=== PATIENT | male | born 1965 | race Hispanic/Latino ===

== ENCOUNTER → 2020-02-28 | Day surgery (SDC) | payer BC ==
[2020-02-27 14:53] VITALS: BMI 30.8
[~2020-02-28] MED LIST: Bupivacaine PF 0.75% SDV 10 ML ONE; CEFAZOLIN 1 GM VIAL ONE; Cyclopentolate 1% Opth Drop 2 ML BOT ONE; Fentanyl 100 MCG/2 ML VIAL ONE; Fluorouracil 100 MG, Enoxaparin Sodium 25 MG, EPINEPHrine 0.3 MG in Ophthalmic Irrigati... IRR SCH; Lidocaine 1% PF 5 ML VIAL ONE; Lidocaine 4% PF 5 ML AMP ONE; Maxitrol 0.1% Opth Oint 3.5 GM TUBE ONE; Midazolam HCl 2 mg/2 ml Vial ONE; PROPOFOL 20 ML ONE; Phenylephrine 2.5% Ophth Soln 5 ML BOT ONE; Triamcinolone 40 MG/ML VIAL ONE
--- NOTE | 2020-02-29 15:11 | OP ---
DATE OF PROCEDURE: 02/28/2020 PREOPERATIVE DIAGNOSIS: Rhegmatogenous retinal detachment, left eye. POSTOPERATIVE DIAGNOSIS: Rhegmatogenous retinal detachment, left eye. PROCEDURES PERFORMED: Pars plana vitrectomy and retinal detachment repair, left eye. ANESTHESIA: Local with monitored anesthesia care. DESCRIPTION OF PROCEDURE: The patient was identified in the preoperative holding area. Appropriate informed consent for the planned surgical procedure on the left eye had been obtained. The patient was transported to the operative suite, where appropriate cardiopulmonary monitoring was established. Local anesthesia was obtained using retrobulbar modified Van Lint lid block using 50:50 mixture of 4% lidocaine and 0.75% bupivacaine. The patient was prepped and draped in usual sterile manner for ophthalmic surgery on the left eye. Lid speculum was placed in the left eye. A 25-gauge trocar was placed through the conjunctiva and sclera superotemporally, inferotemporally, and supranasally. Inferotemporally, a long trocar was required to penetrate through the pars plana. Infusion line was verified and turned on. Light pipe and vitreous cutter were inserted into the eye. Core vitrectomy was performed. Vitreous base was trimmed back 360 degrees carefully with wide field cutting system. 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 Break was noted superotemporally of the total retinal detachment. Posterior drained retinotomy was created inferior to the nerve and a complete air-fluid exchange was performed flattening the retina. No folds or elevations. A 360 laser was placed using Endolaser delivery device. A 28% sulfur hexafluoride gas was infused into the eye. Trocars were removed and all three sclerotomy suture closed. Retrobulbar Kenalog sequential Ancef was placed. Antibiotic ointment was placed. Eye was patched and shielded. The patient was taken to the postoperative recovery unit in good condition, having suffered no immediate perioperative complications. The patient was instructed to keep patch shield on, position right side down. Followup appointment with Dr. Berg. Job ID: [id number] [facility]
== END ==
LOC: SDC 05:55
PROVIDERS: ATTEND Ophthalmology Retina Specialist
PROC: 08T53ZZ Resection of Left Vitreous, Percutaneous Approach (ICD-10-PCS; principal; 2020-02-28)
DX: H33.002 Unspecified retinal detachment with retinal break, left eye (principal); F17.200 Nicotine dependence, unspecified, uncomplicated
CPT/HCPCS: 67025; J0171; J0690; J1650; J2001; J2250; J2704; J3010; J3301; J3490; J9190

== ENCOUNTER 2020-04-01 09:57 | Outpatient (CLI) | payer BC, OTHER ==
[2020-04-01 22:20] LABS: SARS-CoV-2 MS2 Positive; SARS-CoV-2 N Gene Negative; SARS-CoV-2 S Gene Negative; SARS-CoV-2 orf1ab Negative
== END 2020-04-01 09:58 | disposition home or self-care (01) ==
LOC: LABBT 09:57
PROVIDERS: ATTEND Ophthalmology Retina Specialist
DX: Z01.812 Encounter for preprocedural laboratory examination (principal); Z11.59 Encounter for screening for other viral diseases; H33.22 Serous retinal detachment, left eye
CPT/HCPCS: 87635; U0003

== ENCOUNTER 2020-04-03 06:00 | Day surgery (SDC) | payer BC ==
[2020-04-01 10:00] VITALS: BMI 32.3
[2020-04-03] MEDS ORDERED: Fluorouracil 100 MG, Enoxaparin Sodium 25 MG, EPINEPHrine 0.3 MG in Ophthalmic Irrigati... IRR SCH (06:53)
[2020-04-03] MEDS ORDERED: Phenylephrine 2.5% Ophth Soln 5 ML BOT ONE (07:31)
[2020-04-03] MEDS ORDERED: Cyclopentolate 1% Opth Drop 2 ML BOT ONE (07:31)
[2020-04-03] MEDS ORDERED: Midazolam HCl 2 mg/2 ml Vial ONE (09:22)
[2020-04-03] MEDS ORDERED: PROPOFOL 20 ML ONE (09:22)
[2020-04-03] MEDS ORDERED: Fentanyl 100 MCG/2 ML VIAL ONE (09:22)
[2020-04-03] MEDS ORDERED: AcetaZOLAMIDE ER 500 MG CAP ONE (11:07)
[2020-04-03] MEDS ORDERED: Tobramycin/Dexamethasone Ophth Oint 3.5 GM TUBE ONE (13:27)
[2020-04-03] MEDS ORDERED: Indocyanine Green 25 MG/10 ML VIAL ONE (13:27)
[2020-04-03] MEDS ORDERED: Bupivacaine PF 0.75% SDV 10 ML ONE (13:27)
[2020-04-03] MEDS ORDERED: PROPOFOL 200 MG/20 ML VIAL ONE (13:27)
[2020-04-03] MEDS ORDERED: Lidocaine 1% PF 5 ML VIAL ONE (13:27)
[2020-04-03] MEDS ORDERED: Lidocaine 4% PF 5 ML AMP ONE (13:27)
[2020-04-03] MEDS ORDERED: Triamcinolone 40 MG/ML VIAL ONE (13:27)
[2020-04-03] MEDS ORDERED: CEFAZOLIN 1 GM VIAL ONE (13:27)
--- NOTE | 2020-04-03 17:50 | OP ---
DATE OF PROCEDURE: 04/03/2020 PREOPERATIVE DIAGNOSIS: Macular hole, left eye. POSTOPERATIVE DIAGNOSIS: Macular hole, left eye. PROCEDURES: Pars plana vitrectomy, internal limiting membrane peel, left eye. ANESTHESIA: Local with monitored anesthesia care. DESCRIPTION OF OPERATION: The patient was identified in the preoperative holding area. Appropriate informed consent for the planned surgical procedure on the left eye had been obtained. The patient was transported to the operative suite, where appropriate cardiopulmonary monitoring was established. Local anesthesia was obtained using retrobulbar modified Van Lint lid block using 50:50 mixture of 4% lidocaine and 0.75% bupivacaine. The patient was prepped and draped in usual sterile manner for ophthalmic surgery on the left eye. Lid speculum was placed in the left eye. A 25-gauge trocar was placed in the conjunctiva and sclera superotemporally, inferotemporally, and supranasally. Infusion line was placed inferotemporally, and light pipe vitreous cutter was inserted into the eye. Core vitrectomy was performed. Indocyanine green dye was infused into the posterior pole x3, identifying the epiretinal membrane and internal limiting membranes. These were peeled originally adhered to the retina and peeled in multiple strips until all macular internal-limiting membrane was elevated. Complete air-fluid exchange was performed with 10 minutes being allowed for fluid to drain posteriorly. 28% sulfur hexafluoride gas was infused into the eye. Trocars were removed. Sclerotomy sutures were closed. Retrobulbar Kenalog and sequential Ancef were placed. Antibiotic ointment was placed. Eye was patched and shielded. The patient was taken to postop recovery unit in good condition having suffered no immediate perioperative complications. The patient was instructed to keep patch shield on, avoid lifting or bending. Followup appointment with Dr. Berg. Job ID: [id number]
== END 2020-04-03 12:22 | disposition home or self-care (01) ==
LOC: SDC 06:00
PROVIDERS: ATTEND Ophthalmology Retina Specialist
PROC: 08NF3ZZ Release Left Retina, Percutaneous Approach (ICD-10-PCS; principal; 2020-04-03)
PROC: 08T53ZZ Resection of Left Vitreous, Percutaneous Approach (ICD-10-PCS; principal; 2020-04-03)
DX: H35.342 Macular cyst, hole, or pseudohole, left eye (principal)
CPT/HCPCS: 67025; J0171; J0690; J1650; J2001; J2250; J2704; J3010; J3301; J3490; J9190